=== PATIENT | male | born 1935 | race Caucasian/White ===

== ENCOUNTER 2022-11-12 12:41 | Inpatient (IN) | payer OTHER ==
[~2022-11-12] VITALS: Ht 172.7 cm; Wt 60.8 kg
[2022-11-12 12:44] VITALS: BP_SYST 110; PULSE 96; RESP 16; TEMP 98; O2SAT 96
[2022-11-12] MEDS ORDERED: NS 1000 ML IV.SOLN IV ONE (13:00)
[2022-11-12] MEDS ORDERED: cefTRIAXone 1 GM IVPB PREMIX 50 ML IV ONE (13:00)
[2022-11-12 13:23] LABS: BASOPHILS # (AUTO) 0.2 K/uL (0.0-0.2); BASOPHILS % (AUTO) 0.2 % (0.0-2.0); EOSINOPHILS # (AUTO) 0.1 K/uL (0.0-0.4); EOSINOPHILS % (AUTO) 0.1 % (0.0-4.0); HEMATOCRIT 38.2 % (36-54); HEMOGLOBIN 11.2 g/dL (14.0-18.0); LYMPHOCYTES # (AUTO) 1.8 K/uL (1.0-5.5); LYMPHOCYTES % (AUTO) 2.3 % (20.5-51.5); MEAN CORPUSCULAR HEMOGLOBIN 28 pg (27-31); MEAN CORPUSCULAR HGB CONC 29 % (32-36); MEAN CORPUSCULAR VOLUME 96 fL (79.0-98.0); MONOCYTES # (AUTO) 3.8 K/uL (0.0-1.0); NEUTROPHILS # (AUTO) 70.2 K/uL (1.8-7.7); NEUTROPHILS % (AUTO) 92.4 % (40.0-70.0); PLATELET COUNT (AUTO) 299 K/uL (130-430); RED BLOOD CELL COUNT(AUTO) 3.96 MIL/uL (4.2-6.2); RED CELL DISTRIBUTION WIDTH 18.6 % (9.0-15.0)
[2022-11-12 13:49] LABS: BILIRUBIN,URINE NEGATIVE (NEGATIVE); CLARITY/URINE TURBID (CLEAR); COLOR,URINE YELLOW (YELLOW); GLUCOSE,URINE NEGATIVE (NEGATIVE); KETONES,URINE TRACE (NEGATIVE); PROTEIN URINE 3+ (NEGATIVE)
[2022-11-12 13:50] LABS: BLOOD, URINE 3+ (NEGATIVE); LEUKOCYTE ESTERASE ,URINE 3+ (NEGATIVE); NITRITE, URINE NEGATIVE (NEGATIVE)
[2022-11-12 13:52] LABS: BACTERIA,URINE MANY /HPF (None Seen); RBC,URINE 20-50 /HPF (0-3); WBC,URINE >100 /HPF (0-3)
[2022-11-12 13:53] LABS: MUCUS,URINE 1+ /LPF (None Seen)
[2022-11-12 14:09] LABS: ALANINE AMINOTRANSFERASE 49 U/L (12-78); ALBUMIN 2.3 g/dL (3.4-4.8); ANION GAP 14 (5-15); ASPARTATE AMINOTRANSFERASE 46 U/L (10-37); CALCIUM 8.2 mg/dL (8.4-11.0); CARBON DIOXIDE 22 mmol/L (23-29); CREATININE 1.74 mg/dL (0.55-1.30); GLUCOSE 166 mg/dL (74-106); POTASSIUM 3.8 mmol/L (3.5-5.1); TOTAL BILIRUBIN 0.8 mg/dL (0.0-1.0); TOTAL PROTEIN, SERUM 6.5 g/dL (6.4-8.3); UREA NITROGEN, BLOOD 56 mg/dL (8-21)
[2022-11-12 14:17] LABS: CHLORIDE 124 mmol/L (98-107); SODIUM SERUM 160 mmol/L (136-145)
[2022-11-12] MEDS: 0.45% NACL 1,000 ML IV SCH (14:58)
[2022-11-12 15:30] LABS: COVID19 ANTIGEN SOFIA FIA NEGATIVE (NEGATIVE)
[2022-11-12] MEDS ORDERED: DOCU-144 PO (15:32)
[2022-11-12] MEDS ORDERED: QUET50TA PO ×2 (15:32)
[2022-11-12] MEDS ORDERED: TRAZ-250 PO (15:32)
[2022-11-12] MEDS ORDERED: LORA-258 PO (15:32)
[2022-11-12] MEDS ORDERED: LIP40 PO (15:32)
[2022-11-12] MEDS ORDERED: ASA81 PO (15:32)
[2022-11-12] MEDS ORDERED: METO25TA6 PO (15:32)
[2022-11-12] MEDS ORDERED: FOLI-43 PO (15:32)
[2022-11-12 15:41] LABS: INFLUENZA TYPE A negative (NEGATIVE); INFLUENZA TYPE B NEGATIVE (NEGATIVE)
[2022-11-12 16:14] VITALS: PULSE 96; O2SAT 99
[2022-11-12] MEDS ORDERED: MORPHINE 2 MG/ML INJ. SYRINGE IVP PRN ×2 (16:15)
[2022-11-12] MEDS ORDERED: ZOLPIDEM TARTRATE 5 MG TABLET PO PRN (16:15)
[2022-11-12] MEDS ORDERED: MAGNESIUM SULFATE 50 ML IV PRN (16:15)
[2022-11-12] MEDS ORDERED: POTASSIUM CHLORIDE 20 MEQ TAB.PRT.SR PO PRN (16:15)
[2022-11-12] MEDS ORDERED: LORazepam 2 MG/ML VIAL IVP PRN (16:15)
[2022-11-12] MEDS ORDERED: NALOXONE HCL 0.4 MG/ML AMP (NARCAN) IVP PRN ×2 (16:15)
[2022-11-12] MEDS ORDERED: ONDANSETRON HCL 4 MG/2 ML VIAL IVP PRN (16:15)
[2022-11-12] MEDS ORDERED: ACETAMINOPHEN 325 MG TABLET PO PRN ×2 (16:15)
[2022-11-12] MEDS ORDERED: DOCUSATE SODIUM 100 MG CAPSULE PO PRN (16:15)
[2022-11-12] MEDS ORDERED: MUPIROCIN 2% TOPICAL OINTMENT 22 GM NS PRN (16:15)
[2022-11-12] MEDS: PIPERACILLIN/TAZO 2.25G/DEX-IS 50 ML IV SCH (18:42)
[2022-11-12 20:00] VITALS: BP_SYST 111; PULSE 88; RESP 20; TEMP 97.5; O2SAT 97
[2022-11-12] MEDS: QUEtiapine FUMARATE 25 MG TABLET PO SCH (21:00)
[2022-11-12] MEDS: traZODone HCL 50 MG TABLET (DESYREL) PO SCH (21:00)
[2022-11-12] MEDS ORDERED: PIPERACILLIN/TAZOBACTAM 2.25 GM VIAL IV ONE (22:08)
[2022-11-12] MEDS: HEPARIN SODIUM,PORCINE 5,000 UNITS/ML VIAL SUBCUT SCH (22:25)
[2022-11-13] VITALS (10 sets, daily range): BP systolic 104–136; PULSE 75–89; RESP 16–18; TEMP 96.7–97.9; O2SAT 96–100
[2022-11-13] MEDS: PIPERACILLIN/TAZO 2.25G/DEX-IS 50 ML IV SCH ×4 (00:07→17:06)
[2022-11-13] MEDS: 0.45% NACL 1,000 ML IV SCH (00:11)
[2022-11-13 05:18] LABS: BASOPHILS # (AUTO) 0.7 K/uL (0.0-0.2); BASOPHILS % (AUTO) 1.1 % (0.0-2.0); EOSINOPHILS # (AUTO) 0.1 K/uL (0.0-0.4); EOSINOPHILS % (AUTO) 0.2 % (0.0-4.0); HEMATOCRIT 33.7 % (36-54); HEMOGLOBIN 9.7 g/dL (14.0-18.0); LYMPHOCYTES # (AUTO) 2.4 K/uL (1.0-5.5); LYMPHOCYTES % (AUTO) 3.9 % (20.5-51.5); MEAN CORPUSCULAR HEMOGLOBIN 28 pg (27-31); MEAN CORPUSCULAR HGB CONC 29 % (32-36); MEAN CORPUSCULAR VOLUME 98 fL (79.0-98.0); MONOCYTES # (AUTO) 2.8 K/uL (0.0-1.0); MONOCYTES % (AUTO) 4.5 % (1.7-9.3); NEUTROPHILS % (AUTO) 90.3 % (40.0-70.0); PLATELET COUNT (AUTO) 245 K/uL (130-430); RED BLOOD CELL COUNT(AUTO) 3.45 MIL/uL (4.2-6.2); RED CELL DISTRIBUTION WIDTH 19.5 % (9.0-15.0)
[2022-11-13 05:30] LABS: ANION GAP 14 (5-15); CALCIUM 7.8 mg/dL (8.4-11.0); CARBON DIOXIDE 20 mmol/L (23-29); CREATININE 1.46 mg/dL (0.55-1.30); GLUCOSE 107 mg/dL (74-106); POTASSIUM 3.5 mmol/L (3.5-5.1); UREA NITROGEN, BLOOD 46 mg/dL (8-21)
[2022-11-13 05:37] LABS: CHLORIDE 128 mmol/L (98-107); SODIUM SERUM 162 mmol/L (136-145)
[2022-11-13] MEDS: METOPROLOL TARTRATE 25 MG TABLET PO SCH (08:59)
[2022-11-13] MEDS: QUEtiapine FUMARATE 25 MG TABLET PO SCH ×2 (08:59→23:24)
[2022-11-13] MEDS: ASPIRIN 81 MG TAB.CHEW PO SCH (08:59)
[2022-11-13] MEDS ORDERED: QUEtiapine FUMARATE 25 MG TABLET PO SCH (09:00)
[2022-11-13] MEDS: HEPARIN SODIUM,PORCINE 5,000 UNITS/ML VIAL SUBCUT SCH ×2 (09:02→23:42)
[2022-11-13] MEDS ORDERED: DESMOPRESSIN ACETATE 4 MCG/ML AMP IVP ONE (10:45)
[2022-11-13] MEDS: D5W 1,000 ML IV SCH ×2 (11:06→23:04)
[2022-11-13] MEDS ORDERED: ACETYLCYSTEINE 10% 4 ML VIAL (RT) INH ONE (11:15)
[2022-11-13] MEDS: IPRATROPIUM/ALBUTEROL SULFATE 3 ML AMPUL.NEB (DUONEB) INH PRN ×3 (11:32→20:16)
[2022-11-13] MEDS: ACETYLCYSTEINE 10% 4 ML VIAL (RT) INH SCH ×2 (15:21→20:32)
[2022-11-13] MEDS: DESMOPRESSIN ACETATE 4 MCG/ML AMP IVP SCH (23:23)
[2022-11-13] MEDS: traZODone HCL 50 MG TABLET (DESYREL) PO SCH (23:23)
[2022-11-14] MEDS: PIPERACILLIN/TAZO 2.25G/DEX-IS 50 ML IV SCH ×3 (00:21→12:05)
[2022-11-14 05:33] LABS: ANION GAP 10 (5-15); BASOPHILS # (AUTO) 0.7 K/uL (0.0-0.2); BASOPHILS % (AUTO) 1.5 % (0.0-2.0); CALCIUM 7.7 mg/dL (8.4-11.0); CARBON DIOXIDE 25 mmol/L (23-29); CREATININE 1.27 mg/dL (0.55-1.30); EOSINOPHILS # (AUTO) 0.5 K/uL (0.0-0.4); GLUCOSE 130 mg/dL (74-106); HEMATOCRIT 32.5 % (36-54); HEMOGLOBIN 9.5 g/dL (14.0-18.0); LYMPHOCYTES # (AUTO) 2.2 K/uL (1.0-5.5); LYMPHOCYTES % (AUTO) 4.8 % (20.5-51.5); MEAN CORPUSCULAR HEMOGLOBIN 29 pg (27-31); MEAN CORPUSCULAR HGB CONC 29 % (32-36); MEAN CORPUSCULAR VOLUME 98 fL (79.0-98.0); MONOCYTES # (AUTO) 1.8 K/uL (0.0-1.0); MONOCYTES % (AUTO) 3.9 % (1.7-9.3); NEUTROPHILS % (AUTO) 88.8 % (40.0-70.0); PLATELET COUNT (AUTO) 243 K/uL (130-430); POTASSIUM 3.3 mmol/L (3.5-5.1); RED BLOOD CELL COUNT(AUTO) 3.34 MIL/uL (4.2-6.2); RED CELL DISTRIBUTION WIDTH 19.1 % (9.0-15.0); SODIUM SERUM 157 mmol/L (136-145); UREA NITROGEN, BLOOD 31 mg/dL (8-21)
[2022-11-14 05:42] LABS: CHLORIDE 122 mmol/L (98-107)
[2022-11-14 05:56] LABS: WHITE BLOOD COUNT (AUTO) 46.1 K/uL (4.8-10.8)
[2022-11-14] MEDS: D5W 1,000 ML IV SCH ×2 (06:18→12:05)
[2022-11-14 07:24] VITALS: O2SAT 94
[2022-11-14] MEDS: IPRATROPIUM/ALBUTEROL SULFATE 3 ML AMPUL.NEB (DUONEB) INH PRN ×3 (07:24→19:49)
[2022-11-14] MEDS: ACETYLCYSTEINE 10% 4 ML VIAL (RT) INH SCH ×3 (07:24→19:49)
[2022-11-14] MEDS ORDERED: ONDANSETRON HCL 4 MG/2 ML VIAL IVP PRN (09:00)
[2022-11-14] MEDS ORDERED: POTASSIUM CHLORIDE 20 MEQ TAB.PRT.SR PO PRN (09:00)
[2022-11-14] MEDS ORDERED: DOCUSATE SODIUM 100 MG CAPSULE PO PRN (09:00)
[2022-11-14] MEDS ORDERED: NALOXONE HCL 0.4 MG/ML AMP (NARCAN) IVP PRN ×2 (09:00)
[2022-11-14] MEDS ORDERED: MAGNESIUM SULFATE 50 ML IV PRN (09:00)
[2022-11-14] MEDS ORDERED: ACETAMINOPHEN 325 MG TABLET PO PRN ×2 (09:00→09:45)
[2022-11-14] MEDS ORDERED: MUPIROCIN 2% TOPICAL OINTMENT 22 GM NS PRN (09:00)
[2022-11-14] MEDS ORDERED: MORPHINE 2 MG/ML INJ. SYRINGE IVP PRN ×2 (09:00)
[2022-11-14] MEDS: HEPARIN SODIUM,PORCINE 5,000 UNITS/ML VIAL SUBCUT SCH ×2 (09:32→22:18)
[2022-11-14] MEDS: ASPIRIN 81 MG TAB.CHEW PO SCH (09:33)
[2022-11-14] MEDS: QUEtiapine FUMARATE 25 MG TABLET PO SCH ×2 (09:35→22:11)
[2022-11-14] MEDS: DESMOPRESSIN ACETATE 4 MCG/ML AMP IVP SCH ×2 (09:35→22:15)
[2022-11-14] MEDS: METOPROLOL TARTRATE 25 MG TABLET PO SCH (09:36)
[2022-11-14 10:32] VITALS: O2SAT 93
[2022-11-14 11:24] VITALS: BP_SYST 90; PULSE 74; RESP 17; TEMP 98.2; O2SAT 99
[2022-11-14 17:56] VITALS: BP_SYST 101; BP_SYST 144; PULSE 66; PULSE 73; RESP 16; TEMP 97.9; O2SAT 95; O2SAT 99
[2022-11-14 19:50] VITALS: O2SAT 96
[2022-11-14 20:00] VITALS: BP_SYST 98; PULSE 70; RESP 18; TEMP 97.1; O2SAT 96; O2SAT 97
[2022-11-14] MEDS ORDERED: D5/0.45 NS 1,000 ML IV ONE (21:45)
[2022-11-14] MEDS: traZODone HCL 50 MG TABLET (DESYREL) PO SCH (22:11)
[2022-11-14] MEDS: cefTRIAXone 1 GM in D5W 50 ML IV SCH (22:13)
[2022-11-15] VITALS (10 sets, daily range): BP systolic 100–146; PULSE 74–87; RESP 16–18; TEMP 97–97.6; O2SAT 95–99
[2022-11-15 05:58] LABS: HEMOGLOBIN 9.9 g/dL (14.0-18.0); MEAN CORPUSCULAR HEMOGLOBIN 29 pg (27-31); MEAN CORPUSCULAR VOLUME 95 fL (79.0-98.0)
[2022-11-15 06:07] LABS: ANION GAP 10 (5-15); CARBON DIOXIDE 24 mmol/L (23-29); CHLORIDE 118 mmol/L (98-107); CREATININE 0.99 mg/dL (0.55-1.30); GLUCOSE 91 mg/dL (74-106); POTASSIUM 3.2 mmol/L (3.5-5.1); SODIUM SERUM 152 mmol/L (136-145); UREA NITROGEN, BLOOD 23 mg/dL (8-21)
[2022-11-15 06:13] LABS: RED BLOOD CELL COUNT(AUTO) 3.44 MIL/uL (4.2-6.2)
[2022-11-15 06:23] LABS: WHITE BLOOD COUNT (AUTO) 44.4 K/uL (4.8-10.8)
[2022-11-15 06:24] LABS: HEMATOCRIT 32.6 % (36-54); MEAN CORPUSCULAR HGB CONC 30 % (32-36); RED CELL DISTRIBUTION WIDTH 18.2 % (9.0-15.0)
[2022-11-15 06:25] LABS: BASOPHILS % (AUTO) 2.1 % (0.0-2.0); EOSINOPHILS % (AUTO) 1.9 % (0.0-4.0); LYMPHOCYTES # (AUTO) 2.3 K/uL (1.0-5.5); LYMPHOCYTES % (AUTO) 5.2 % (20.5-51.5); MONOCYTES % (AUTO) 3.4 % (1.7-9.3); NEUTROPHILS # (AUTO) 38.8 K/uL (1.8-7.7); NEUTROPHILS % (AUTO) 87.4 % (40.0-70.0); PLATELET COUNT (AUTO) 240 K/uL (130-430)
[2022-11-15 06:26] LABS: BASOPHILS # (AUTO) 0.9 K/uL (0.0-0.2); EOSINOPHILS # (AUTO) 0.9 K/uL (0.0-0.4); MONOCYTES # (AUTO) 1.5 K/uL (0.0-1.0)
[2022-11-15] MEDS: D5W 1,000 ML IV SCH ×2 (06:29→12:30)
[2022-11-15] MEDS: IPRATROPIUM/ALBUTEROL SULFATE 3 ML AMPUL.NEB (DUONEB) INH PRN ×4 (07:36→19:39)
[2022-11-15] MEDS: ACETYLCYSTEINE 10% 4 ML VIAL (RT) INH SCH ×4 (07:36→19:40)
[2022-11-15] MEDS: DESMOPRESSIN ACETATE 4 MCG/ML AMP IVP SCH ×2 (08:47→21:50)
[2022-11-15] MEDS: ASPIRIN 81 MG TAB.CHEW PO SCH (09:03)
[2022-11-15] MEDS: QUEtiapine FUMARATE 25 MG TABLET PO SCH ×2 (09:04→21:48)
[2022-11-15] MEDS: METOPROLOL TARTRATE 25 MG TABLET PO SCH (09:05)
[2022-11-15] MEDS: HEPARIN SODIUM,PORCINE 5,000 UNITS/ML VIAL SUBCUT SCH ×2 (09:08→21:57)
[2022-11-15 14:44] LABS: INR 1.1 (0.80-1.20); PROTHROMBIN TIME 11.4 SECS (9.5-12.5)
[2022-11-15] MEDS: traZODone HCL 50 MG TABLET (DESYREL) PO SCH (21:47)
[2022-11-15] MEDS: cefTRIAXone 1 GM in D5W 50 ML IV SCH (21:52)
[2022-11-16] VITALS (9 sets, daily range): BP systolic 123–138; PULSE 84–92; RESP 16–18; TEMP 96.4–97.8; O2SAT 94–100
[2022-11-16] MEDS: D5W 1,000 ML IV SCH ×2 (01:06→08:30)
[2022-11-16 06:50] LABS: ANION GAP 7 (5-15); CALCIUM 7.8 mg/dL (8.4-11.0); CARBON DIOXIDE 24 mmol/L (23-29); CHLORIDE 112 mmol/L (98-107); CREATININE 0.84 mg/dL (0.55-1.30); GLUCOSE 103 mg/dL (74-106); POTASSIUM 3.4 mmol/L (3.5-5.1); SODIUM SERUM 143 mmol/L (136-145); UREA NITROGEN, BLOOD 18 mg/dL (8-21)
[2022-11-16 07:15] LABS: HEMATOCRIT 33.9 % (36-54); HEMOGLOBIN 10.4 g/dL (14.0-18.0); MEAN CORPUSCULAR HEMOGLOBIN 29 pg (27-31); MEAN CORPUSCULAR HGB CONC 31 % (32-36); MEAN CORPUSCULAR VOLUME 94 fL (79.0-98.0); PLATELET COUNT (AUTO) 258 K/uL (130-430); RED BLOOD CELL COUNT(AUTO) 3.59 MIL/uL (4.2-6.2)
[2022-11-16 07:17] LABS: WHITE BLOOD COUNT (AUTO) 49.3 K/uL (4.8-10.8)
[2022-11-16] MEDS: ACETYLCYSTEINE 10% 4 ML VIAL (RT) INH SCH ×4 (07:39→19:00)
[2022-11-16] MEDS: IPRATROPIUM/ALBUTEROL SULFATE 3 ML AMPUL.NEB (DUONEB) INH PRN ×3 (07:39→16:39)
[2022-11-16] MEDS: QUEtiapine FUMARATE 25 MG TABLET PO SCH ×2 (08:37→21:31)
[2022-11-16] MEDS: DESMOPRESSIN ACETATE 4 MCG/ML AMP IVP SCH (08:37)
[2022-11-16] MEDS: ASPIRIN 81 MG TAB.CHEW PO SCH (08:37)
[2022-11-16] MEDS: METOPROLOL TARTRATE 25 MG TABLET PO SCH (08:38)
[2022-11-16 08:39] LABS: ATYPICAL LYMPHOCYTES % 3 % (0-0); BAND % (MANUAL) 13 % (0-6); BASOPHILS % (MANUAL) 0 % (0-2); EOSINOPHILS % (MANUAL) 2 % (0-7); LYMPHOCYTES % (MANUAL) 7 % (20-46); MONOCYTES % (MANUAL) 8 % (0-11)
[2022-11-16] MEDS: HEPARIN SODIUM,PORCINE 5,000 UNITS/ML VIAL SUBCUT SCH ×2 (08:39→21:00)
[2022-11-16 08:40] LABS: ANISOCYTOSIS 1+; METAMYELOCYTES % 2 % (0-0); MYELOCYTES % 2 % (0-0); PLATELET ESTIMATE ADEQUATE (ADEQUATE)
[2022-11-16] MEDS: POTASSIUM CHLORIDE 10 MEQ in 0.45% NACL 1,000 ML IV SCH (11:31)
[2022-11-16] MEDS: cefTRIAXone 1 GM in D5W 50 ML IV SCH (21:32)
[2022-11-16] MEDS: traZODone HCL 50 MG TABLET (DESYREL) PO SCH (21:32)
[2022-11-17] VITALS (9 sets, daily range): BP systolic 112–156; PULSE 81–102; RESP 14–18; TEMP 96.9–98.6; O2SAT 95–98
[2022-11-17 07:21] LABS: BASOPHILS # (AUTO) 0.7 K/uL (0.0-0.2); BASOPHILS % (AUTO) 1.2 % (0.0-2.0); EOSINOPHILS # (AUTO) 0.9 K/uL (0.0-0.4); EOSINOPHILS % (AUTO) 1.6 % (0.0-4.0); HEMATOCRIT 35.6 % (36-54); HEMOGLOBIN 11.1 g/dL (14.0-18.0); LYMPHOCYTES # (AUTO) 1.9 K/uL (1.0-5.5); LYMPHOCYTES % (AUTO) 3.4 % (20.5-51.5); MEAN CORPUSCULAR HEMOGLOBIN 29 pg (27-31); MEAN CORPUSCULAR HGB CONC 31 % (32-36); MEAN CORPUSCULAR VOLUME 94 fL (79.0-98.0); MONOCYTES # (AUTO) 2.2 K/uL (0.0-1.0); MONOCYTES % (AUTO) 3.8 % (1.7-9.3); NEUTROPHILS # (AUTO) 51.6 K/uL (1.8-7.7); PLATELET COUNT (AUTO) 261 K/uL (130-430); RED BLOOD CELL COUNT(AUTO) 3.79 MIL/uL (4.2-6.2); RED CELL DISTRIBUTION WIDTH 18.1 % (9.0-15.0)
[2022-11-17] MEDS: IPRATROPIUM/ALBUTEROL SULFATE 3 ML AMPUL.NEB (DUONEB) INH PRN ×4 (07:27→23:26)
[2022-11-17] MEDS: ACETYLCYSTEINE 10% 4 ML VIAL (RT) INH SCH ×4 (07:27→23:26)
[2022-11-17 07:33] LABS: ANION GAP 11 (5-15); CALCIUM 7.9 mg/dL (8.4-11.0); CARBON DIOXIDE 21 mmol/L (23-29); CHLORIDE 110 mmol/L (98-107); CREATININE 0.81 mg/dL (0.55-1.30); GLUCOSE 95 mg/dL (74-106); POTASSIUM 3.8 mmol/L (3.5-5.1); SODIUM SERUM 142 mmol/L (136-145); UREA NITROGEN, BLOOD 13 mg/dL (8-21)
[2022-11-17] MEDS: POTASSIUM CHLORIDE 10 MEQ in 0.45% NACL 1,000 ML IV SCH (07:39)
[2022-11-17 07:48] LABS: WHITE BLOOD COUNT (AUTO) 57.3 K/uL (4.8-10.8)
[2022-11-17] MEDS: ASPIRIN 81 MG TAB.CHEW PO SCH (09:02)
[2022-11-17] MEDS: QUEtiapine FUMARATE 25 MG TABLET PO SCH ×2 (09:06→23:32)
[2022-11-17] MEDS: METOPROLOL TARTRATE 25 MG TABLET PO SCH (09:09)
[2022-11-17] MEDS: HEPARIN SODIUM,PORCINE 5,000 UNITS/ML VIAL SUBCUT SCH (09:11)
[2022-11-17] MEDS: PIPERACILLIN/TAZO 2.25G/DEX-IS 50 ML IV SCH ×2 (12:22→17:30)
[2022-11-17] MEDS: cefTRIAXone 1 GM in D5W 50 ML IV SCH (21:00)
[2022-11-17] MEDS: LORazepam 2 MG/ML VIAL IVP PRN (21:10)
[2022-11-17] MEDS: traZODone HCL 50 MG TABLET (DESYREL) PO SCH (23:32)
[2022-11-18] VITALS (9 sets, daily range): BP systolic 102–125; PULSE 89–110; RESP 18–24; TEMP 96.9–98.6; O2SAT 94–98
[2022-11-18] MEDS: PIPERACILLIN/TAZO 2.25G/DEX-IS 50 ML IV SCH ×4 (00:15→17:42)
[2022-11-18] MEDS: POTASSIUM CHLORIDE 10 MEQ in 0.45% NACL 1,000 ML IV SCH (03:19)
[2022-11-18 08:10] LABS: ANION GAP 8 (5-15); CALCIUM 8.1 mg/dL (8.4-11.0); CARBON DIOXIDE 20 mmol/L (23-29); CHLORIDE 111 mmol/L (98-107); CREATININE 0.89 mg/dL (0.55-1.30); GLUCOSE 84 mg/dL (74-106); POTASSIUM 3.6 mmol/L (3.5-5.1); SODIUM SERUM 139 mmol/L (136-145); UREA NITROGEN, BLOOD 11 mg/dL (8-21)
[2022-11-18 08:30] LABS: HEMATOCRIT 37.1 % (36-54); HEMOGLOBIN 11.5 g/dL (14.0-18.0); MEAN CORPUSCULAR HEMOGLOBIN 30 pg (27-31); MEAN CORPUSCULAR HGB CONC 31 % (32-36); MEAN CORPUSCULAR VOLUME 97 fL (79.0-98.0); PLATELET COUNT (AUTO) 262 K/uL (130-430); RED BLOOD CELL COUNT(AUTO) 3.84 MIL/uL (4.2-6.2)
[2022-11-18] MEDS ORDERED: LEVO-62 PO (08:56)
[2022-11-18] MEDS: ACETYLCYSTEINE 10% 4 ML VIAL (RT) INH SCH ×3 (09:05→20:46)
[2022-11-18] MEDS: IPRATROPIUM/ALBUTEROL SULFATE 3 ML AMPUL.NEB (DUONEB) INH PRN ×3 (09:07→20:47)
[2022-11-18 11:16] LABS: BAND % (MANUAL) 14 % (0-6); BASOPHILS % (MANUAL) 0 % (0-2); EOSINOPHILS % (MANUAL) 0 % (0-7); LYMPHOCYTES % (MANUAL) 10 % (20-46); METAMYELOCYTES % 9 % (0-0); MONOCYTES % (MANUAL) 7 % (0-11); MYELOCYTES % 2 % (0-0)
[2022-11-18 11:17] LABS: PLATELET ESTIMATE ADEQUATE (ADEQUATE)
[2022-11-18] MEDS: METOPROLOL TARTRATE 25 MG TABLET PO SCH (11:21)
[2022-11-18] MEDS: QUEtiapine FUMARATE 25 MG TABLET PO SCH ×2 (11:21→21:44)
[2022-11-18] MEDS: traZODone HCL 50 MG TABLET (DESYREL) PO SCH (21:45)
[2022-11-18] MEDS: cefTRIAXone 1 GM in D5W 50 ML IV SCH (21:54)
[2022-11-19] VITALS: BP_SYST 118; PULSE 97; RESP 18; TEMP 98; O2SAT 97
[2022-11-19] MEDS: LORazepam 2 MG/ML VIAL IVP PRN (00:05)
[2022-11-19] MEDS: PIPERACILLIN/TAZO 2.25G/DEX-IS 50 ML IV SCH ×2 (00:05→06:46)
[2022-11-19] MEDS: POTASSIUM CHLORIDE 10 MEQ in 0.45% NACL 1,000 ML IV SCH (00:06)
[2022-11-19 04:40] VITALS: BP_SYST 115; PULSE 72; RESP 18; TEMP 97.6; O2SAT 96
[2022-11-19 04:41] VITALS: O2SAT 95
[2022-11-19 06:21] LABS: BASOPHILS # (AUTO) 0.9 K/uL (0.0-0.2); BASOPHILS % (AUTO) 1.9 % (0.0-2.0); EOSINOPHILS # (AUTO) 0.6 K/uL (0.0-0.4); EOSINOPHILS % (AUTO) 1.2 % (0.0-4.0); HEMATOCRIT 34.4 % (36-54); HEMOGLOBIN 10.7 g/dL (14.0-18.0); LYMPHOCYTES # (AUTO) 1.7 K/uL (1.0-5.5); LYMPHOCYTES % (AUTO) 3.5 % (20.5-51.5); MEAN CORPUSCULAR HEMOGLOBIN 29 pg (27-31); MEAN CORPUSCULAR HGB CONC 31 % (32-36); MEAN CORPUSCULAR VOLUME 94 fL (79.0-98.0); MONOCYTES # (AUTO) 1.6 K/uL (0.0-1.0); MONOCYTES % (AUTO) 3.3 % (1.7-9.3); NEUTROPHILS # (AUTO) 43.7 K/uL (1.8-7.7); NEUTROPHILS % (AUTO) 90.1 % (40.0-70.0); PLATELET COUNT (AUTO) 295 K/uL (130-430); RED BLOOD CELL COUNT(AUTO) 3.65 MIL/uL (4.2-6.2); RED CELL DISTRIBUTION WIDTH 18.6 % (9.0-15.0)
[2022-11-19 06:58] LABS: ANION GAP 13 (5-15); CALCIUM 8.3 mg/dL (8.4-11.0); CARBON DIOXIDE 22 mmol/L (23-29); CHLORIDE 109 mmol/L (98-107); CREATININE 0.77 mg/dL (0.55-1.30); GLUCOSE 73 mg/dL (74-106); POTASSIUM 3.7 mmol/L (3.5-5.1); SODIUM SERUM 144 mmol/L (136-145); UREA NITROGEN, BLOOD 11 mg/dL (8-21)
[2022-11-19 07:03] LABS: WHITE BLOOD COUNT (AUTO) 48.5 K/uL (4.8-10.8)
[2022-11-19 07:13] VITALS: O2SAT 95
[2022-11-19] MEDS: IPRATROPIUM/ALBUTEROL SULFATE 3 ML AMPUL.NEB (DUONEB) INH PRN (07:13)
[2022-11-19] MEDS: ACETYLCYSTEINE 10% 4 ML VIAL (RT) INH SCH (07:13)
[2022-11-19 08:00] VITALS: BP_SYST 152; PULSE 93; RESP 16; TEMP 96.1; O2SAT 99
[2022-11-19] MEDS: QUEtiapine FUMARATE 25 MG TABLET PO SCH (09:45)
[2022-11-19] MEDS: METOPROLOL TARTRATE 25 MG TABLET PO SCH (09:45)
[2022-11-19 10:34] VITALS: BP_SYST 100; PULSE 96; RESP 20; TEMP 97.7; O2SAT 97
== END 2022-11-19 11:40 | disposition home or self-care (01) | DRG 871 ==
LOC: SED 12:41 → STU 14:34
PROVIDERS: ADMIT General Practice; ATTEND General Practice
PROC: 05HY33Z Insertion of Infusion Device into Upper Vein, Percutaneous Approach (ICD-10-PCS; principal; 2022-11-16)
PROC: B54MZZA Ultrasonography of Right Upper Extremity Veins, Guidance (ICD-10-PCS; 2022-11-16)
DX: A41.9 Sepsis, unspecified organism (principal); E43 Unspecified severe protein-calorie malnutrition; J69.0 Pneumonitis due to inhalation of food and vomit; N17.0 Acute kidney failure with tubular necrosis; E87.0 Hyperosmolality and hypernatremia; N13.6 Pyonephrosis; E78.5 Hyperlipidemia, unspecified; E86.1 Hypovolemia; E86.0 Dehydration; F03.90 Unspecified dementia, unspecified severity, without behavioral disturbance, psychotic disturbance, mood disturbance, and anxiety; Z66 Do not resuscitate; Z20.822 Contact with and (suspected) exposure to COVID-19; E87.8 Other disorders of electrolyte and fluid balance, not elsewhere classified; I10 Essential (primary) hypertension; Z85.51 Personal history of malignant neoplasm of bladder; Z95.1 Presence of aortocoronary bypass graft; Z86.73 Personal history of transient ischemic attack (TIA), and cerebral infarction without residual deficits; Z68.20 Body mass index [BMI] 20.0-20.9, adult; Z79.82 Long term (current) use of aspirin; Z79.899 Other long term (current) drug therapy
CPT/HCPCS: 36415; 70450-TC; 71045; 72192-TC; 76376; 76770; 80048; 80053; 81000; 83037; 83605; 83735; 84484; 85007; 85025; 85027; 85610-TC; 85730-TC; 86886; 86900; 86901; 87040; 87086; 93005; 94640; 94760; 96365; 97110-GP; 97530-GP; 99291; A4409; C1751; G0378; J0696; J1644; J2060; J2543; J2597; J3480; J7060; J7608